=== PATIENT | female | born 1960 | race Two or more races ===

== ENCOUNTER → 2019-01-19 | Outpatient (REF) | payer BC ==
[2019-01-19 11:29] LABS: BASO % 0.8 % (0.0-1.0); EOS # 0.1 10^3/uL (0.0-0.50); EOS % 1.6 % (0.0-3.0); HEMATOCRIT 38.4 % (36.0-47.0); HEMOGLOBIN 12.8 g/dl (12.0-15.5); LYMPH # 1.6 10^3/uL (1.5-4.5); LYMPH % 32.2 % (24.0-44.0); MEAN CORPUSCULAR HEMOGLOBIN 30.5 pg (27.0-33.0); MEAN CORPUSCULAR HGB CONC 33.3 g/dl (32.0-36.5); MEAN CORPUSCULAR VOLUME 91.6 fl (80.0-96.0); MONO # 0.4 10^3/uL (0.0-0.8); MONO % 7.6 % (0.0-5.0); NEUTROPHILS # 2.8 10^3/uL (1.8-7.7); NEUTROPHILS % 57.6 % (36.0-66.0); PLATELET COUNT, AUTOMATED 194 10^3/uL (150-450); RED BLOOD COUNT 4.19 10^6/uL (4.00-5.40); WHITE BLOOD COUNT 4.9 10^3/uL (4.0-10.0)
[2019-01-19 12:10] LABS: ALBUMIN 3.8 GM/DL (3.2-5.2); ALT/SGPT 27 U/L (12-78); BILIRUBIN,TOTAL 0.6 MG/DL (0.2-1.0); BLOOD UREA NITROGEN 17 MG/DL (7-18); CALCIUM LEVEL 8.5 MG/DL (8.5-10.1); CARBON DIOXIDE LEVEL 28 MEQ/L (21-32); CHLORIDE LEVEL 104 MEQ/L (98-107); CHOLESTEROL LEVEL 258 MG/DL (<200); CHOLESTEROL RISK RATIO 4.867 (<5); CREATININE FOR GFR 0.56 MG/DL (0.55-1.30); GLOMERULAR FILTRATION RATE > 60.0 (>51); GLUCOSE, FASTING 78 MG/DL (70-100); HDL CHOLESTEROL 53 MG/DL (>40); LDL CHOLESTEROL 187 MG/DL (<100); NON-HDL-C 205 MG/DL; POTASSIUM SERUM 4.3 MEQ/L (3.5-5.1); RHEUMATOID FACTOR QUANT < 10.0 IU/ML (<15.0); SODIUM LEVEL 140 MEQ/L (136-145); TOTAL PROTEIN 7.2 GM/DL (6.4-8.2); TRIGLYCERIDES LEVEL 89 MG/DL (<150)
[2019-01-21 00:06] LABS: ANA (HEP2) Negative (.)
== END ==
LOC: M SFHCLERA 09:47
PROVIDERS: ATTEND Nurse Practitioner Family
DX: Z76.89 Persons encountering health services in other specified circumstances (principal); M06.9 Rheumatoid arthritis, unspecified

== ENCOUNTER → 2019-01-23 | Outpatient (CLI) | payer BC ==
--- NOTE | 2019-01-24 02:31 | REP ---
Clinical: Bilateral hand pain. Technique: AP, lateral, bilateral oblique views of the right and left hand (eight views). 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 Moderate arthritic changes are noted at the metacarpophalangeal joints including subchondral sclerosis and joint space narrowing. Mild/moderate degenerative changes at the carpometacarpal and radiocarpal joint line with subchondral sclerosis and minimal joint space narrowing. 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 Moderate arthritic changes are noted at the metacarpophalangeal joints including subchondral sclerosis and joint space narrowing. Evaluation of the wrist demonstrates moderate ramirez carpal degenerative changes including cortical sclerosis with subtle irregularities and associated joint space narrowing as well as increased sclerosis along the radiocarpal joint line and evidence for old ulnar styloid fracture with moderate heterotopic ossification. Impression: Degenerative changes as detailed above. Electronically Signed by Bradley Ruth MD 01/24/2019 02:22 A
--- NOTE | 2019-01-24 02:58 | REP ---
Clinical: Neck pain. Technique: AP, lateral, flexion/extension, bilateral oblique and open mouth views of the cervical spine. Findings: Straightening of normal lordosis is appreciated. Alignment is maintained. There is no evidence for acute fracture / compression injury or subluxation. Early advanced multilevel degenerative changes include endplate sclerosis, anterior osteophytosis, and disc space narrowing. Left-sided hypertrophic facet changes cannot be excluded. Impression: Early advanced multilevel degenerative changes. Electronically Signed by Bradley Ruth MD 01/24/2019 02:50 A
== END ==
LOC: M LRY 10:38
PROVIDERS: ATTEND Nurse Practitioner Family
DX: M50.30 Other cervical disc degeneration, unspecified cervical region (principal); M19.041 Primary osteoarthritis, right hand; M19.042 Primary osteoarthritis, left hand

== ENCOUNTER → 2019-01-26 | Outpatient (CLI) | payer BC ==
--- NOTE | 2019-01-26 10:15 | REPMRS ---
Patient History The patient states she has not had a clinical breast exam in over a year. Patient is postmenopausal. No known family history of cancer. 3D TOMOSYNTHESIS WAS PERFORMED. Digital Mammo Screening Bilat: January 26, 2019 - Exam #: [id number] Bilateral CC and MLO view(s) were taken. Technologist: Ema Linton, Technologist No prior studies available for comparison. FINDINGS: There are scattered fibroglandular densities. There is no evidence of cancer on this mammogram. Assessment: BI-RADS/ACR category 2 mammogram. Benign Findings. Recommendation Routine screening mammogram of both breasts in 1 year (for women over age 40). This mammogram was interpreted with the aid of an FDA-approved computer-aided dectection system. Electronically Signed By: Mike Gao MD 01/26/19 1017
== END ==
LOC: M RAD 09:10
PROVIDERS: ATTEND Nurse Practitioner Family
DX: Z12.31 Encounter for screening mammogram for malignant neoplasm of breast (principal); Z78.0 Asymptomatic menopausal state

== ENCOUNTER 2019-09-18 10:08 | Outpatient (RCR) | payer OTHER | END 2019-09-20 | disposition home or self-care (01) | LOC: M PT 10:08 | PROVIDERS: ATTEND Nurse Practitioner Family | DX: M19.012 Primary osteoarthritis, left shoulder (principal) ==

== ENCOUNTER 2019-10-17 15:12 | Outpatient (RCR) | payer OTHER | END 2019-10-20 | LOC: M PT 15:12 | PROVIDERS: ATTEND Nurse Practitioner Family | DX: M19.012 Primary osteoarthritis, left shoulder (principal) ==

== ENCOUNTER → 2019-11-08 | Outpatient (CLI) | payer OTHER ==
--- NOTE | 2019-11-09 10:23 | REP ---
Two views left clavicle: New 11/08/2019. Indication: Clavicular pain. Comparison: None. Findings: There is no acute fracture, subluxation or dislocation. Degenerative sequelae of the left glenohumeral joint is noted with high-riding humerus possibly reflecting rotator cuff injury. The visualized lung is clear. Impression: No acute osseous injury of the left clavicle. Electronically Signed by Khoa Gallagher DO 11/08/2019 04:59 P
== END ==
LOC: M LRY 16:22
PROVIDERS: ATTEND Nurse Practitioner Family
DX: M89.8X1 Other specified disorders of bone, shoulder (principal)

== ENCOUNTER → 2019-11-12 | Outpatient (CLI) | payer OTHER ==
--- NOTE | 2019-11-12 22:36 | REPVR ---
PROCEDURE INFORMATION: Exam: MR Cervical Spine Without Contrast Exam date and time: 11/12/2019 6:43 PM Age: 59 years old Clinical indication: Neck pain; Patient HX: Cervical pain stiffness drom; Additional info: Spondylosis cervical, R/O hnp and stenosis TECHNIQUE: Imaging protocol: Multiplanar magnetic resonance images of the cervical spine without intravenous contrast. COMPARISON: CR SPINE CERVICAL COMPL 01/23/2019 10:44 AM FINDINGS: Patient motion. Nonspecific straightening of the cervical lordosis. Vertebral body height and AP alignment is preserved. Multilevel disc desiccation. No evidence of discitis/osteomyelitis. No abnormal cord signal or cord expansion. No epidural fluid collection. Prominent thyroid, incompletely visualized. C2-C3: No significant central or foraminal stenosis. C3-C4: No significant central or foraminal stenosis. C4-C5: Minimal disc osteophyte complex without significant central or foraminal stenosis. C5-C6: Mild disc osteophyte complex with right-sided uncinate spurring. No significant central canal stenosis. Mild right foraminal stenosis. C6-C7: Minimal disc osteophyte complex without significant central or foraminal stenosis. C7-T1: No significant central or foraminal stenosis. IMPRESSION: 1. Patient motion without definite acute abnormality. 2. Mild degenerative findings as above without significant central canal compromise. Electronically signed by: Jimmy Mo On 11/12/2019 22:35:39 PM
== END ==
LOC: M RAD 17:36
PROVIDERS: ATTEND Physician Assistant
DX: M47.892 Other spondylosis, cervical region (principal)

== ENCOUNTER → 2019-11-16 | Outpatient (CLI) | payer OTHER ==
[2019-11-16 13:22] LABS: PLATELET COUNT, AUTOMATED 212 10^3/uL (150-450)
[2019-11-16 13:34] LABS: INR 0.99; PARTIAL THROMBOPLASTIN TIME 25.1 SECONDS (25.0-38.4); PROTHROMBIN TIME 12.8 SECONDS (11.8-14.0)
[2019-11-16 13:42] LABS: C REACTIVE PROTEIN QUANTITATIV < 0.30 MG/DL (0.00-0.30); RHEUMATOID FACTOR QUANT < 10.0 IU/ML (<15.0)
== END ==
LOC: M LAB 12:25
PROVIDERS: ATTEND Physician Assistant
DX: Z01.812 Encounter for preprocedural laboratory examination (principal); M50.320 Other cervical disc degeneration, mid-cervical region, unspecified level